=== PATIENT | male | born 1945 | race Caucasian/White ===

== ENCOUNTER 2017-12-28 12:34 | Emergency (ER) | payer MEDICARE, SELFPAY ==
[2017-12-28 12:38] VITALS: BP 167/69; PULSE 48; RESP 14; TEMP 36.7; O2SAT 99; BMI 27.4
--- NOTE | 2017-12-28 12:49 | ED.SOB ---
HPI - SOB/Dyspnea <Mary Alvarez PA-C - Last Filed: 12/28/17 21:45> General Chief Complaint: Shortness of Breath/Dyspnea Stated Complaint: STATES CONGESTED,SOB,ACHE ALL OVER Time Seen by Provider: 12/28/17 12:49 Source: patient Mode of arrival: ambulatory Limitations: no limitations History of Present Illness This 72-year-old gentleman comes to the ED today due to feeling short of breath and more fatigue for the last 3-4 days. He notices that he is wheezing with exercise and has reduced exercise tolerance, especially noted walking up hill. He states that his chest feels congested, and he has also had some body aches. He denies any chest pain. He denies any abdominal pain or nausea though has had some decreased appetite. He denies any pain or swelling in the extremities. He denies any difficulty lying supine due to breathing issues. He does have some intermittent dry cough. He has ongoing postnasal drip and he has had some headache. He states that he has chronic left ocular area pain which has been worked up and no specific source found. He has had fever. He states that his feeling of dyspnea with exertion actually gets better when he is walking a little bit more. He has a history of atrial flutter/fibrillation and had cardiac ablation for this. He has not noted any palpitations. He denies any vision change or jaw claudication with the headache. He states that he had the same symptoms last year and had a thorough cardiac workup including stress test and echocardiogram. 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 He mentioned to nursing that he thinks symptoms may have been going on for longer, maybe a month, but definitely worse in the last few days. Related Data Home Medications Medication Instructions Recorded Confirmed rosuvastatin 20 mg PO HS #0 08/24/17 12/28/17 tamsulosin [Flomax] 0.4 mg PO QDAY #0 08/24/17 12/28/17 atenolol 50 mg PO DAILY 12/28/17 12/28/17 omeprazole 20 mg PO DAILY 12/28/17 12/28/17 venlafaxine 37.5 mg PO DAILY 12/28/17 12/28/17 Allergies Allergy/AdvReac Type Severity Reaction Status Date / Time iodine [IODINE] Allergy Unknown Verified 12/28/17 12:41 Quinolones [QUINOLONES] Allergy Unknown Verified 12/28/17 12:41 prednisone AdvReac Severe Anxiety Verified 12/28/17 12:41 Review of Systems <JANAE Driscoll Last Filed: 12/28/17 21:45> Review of Systems All systems reviewed & are unremarkable except as noted in HPI and below Exam <JANAE Driscoll Last Filed: 12/28/17 21:45> Narrative Exam Narrative: GENERAL APPEARANCE: Patient sitting comfortably, in no distress. HEENT: PERRL, EOMI, normal oropharynx aside from some PND, normal TMs. No sinus tenderness NECK/THYROID: Neck supple, no JVD, no lymphadenopathy. LUNGS: Clear to auscultation bilaterally aside from some very faint sibilant end expiratory wheeze in the upper lobes. No cough on exam HEART: Regular rate and rhythm without murmur, slow, normal S1, S2, no S3 or S4. ABDOMEN: Soft, NT, ND, + BS x 4 quadrants EXTREMITIES: No cyanosis or edema. No calf tenderness NEUROLOGIC: Alert and oriented, normal speech, and coordination. Initial Vital Signs Initial Vital Signs: Vital Signs Temperature 98.0 F 12/28/17 12:38 Pulse Rate 48 L 12/28/17 12:38 Respiratory Rate 14 12/28/17 12:38 Blood Pressure 167/69 H 12/28/17 12:38 Pulse Oximetry 99 12/28/17 12:38 <Willis Aguilar MD - Last Filed: 01/08/18 08:20> Initial Vital Signs Initial Vital Signs: Vital Signs Temperature 98.0 F 12/28/17 12:38 Pulse Rate 48 L 12/28/17 12:38 Respiratory Rate 14 12/28/17 12:38 Blood Pressure 167/69 H 12/28/17 12:38 Pulse Oximetry 99 12/28/17 12:38 Scores <JANAE Driscoll Last Filed: 12/28/17 21:45> HEART Score Heart Score history: Slightly Suspicious Heart Score EKG: Normal Heart Score Age: > or = 65 years old Heart Score risk factors: 1-2 risk factors Heart Score troponin: < or = to normal limit Heart Score Total: 3 Course <JANAE Driscoll Filed: 12/28/17 21:45> Additional Information: I have reviewed findings with Dr. Aguilar who has also reviewed EKG and heart score. He has been symptomatic while here and no acute findings on workup. We talked about possible hospital admission but he does not feel like this is needed. Patient actually reduced his atenolol today already. Patient would like to try lower dose of atenolol for a couple of days since his heart rate is on the low side, as well as medication to help with postnasal drip and chest congestion and see if he improves. He agreed to return if any acutely worsening symptoms, otherwise advised to follow up with PCP within 2 days. Orders Ordered: Discontinued Medications Albuterol (Proventil) 1.25 mg INH NOW ONE Stop: 12/28/17 13:09 Last Admin: 12/28/17 14:20 Dose: Albuterol (Ventolin) 2.5 mg INH NOW ONE Stop: 12/28/17 13:28 Last Admin: 12/28/17 13:28 Dose: 2.5 mg Al Hydrox/Mg Hydrox/Simethicone 20 ml/ Lidocaine HCl 15 ml 0 ml PO NOW ONE Stop: 12/28/17 13:44 Last Admin: 12/28/17 13:48 Dose: 45 ml Vital Signs - 8 hr 12/28/17 14:00 12/28/17 14:30 12/28/17 16:04 Pulse Rate 51 L 51 L 51 L Respiratory Rate 15 17 16 Blood Pressure [Right Arm] 132/62 H 136/62 H 130/66 H Pulse Oximetry 97 95 100 <Willis Aguilar MD - Last Filed: 01/08/18 08:20> Orders Ordered: Discontinued Medications Albuterol (Proventil) 1.25 mg INH NOW ONE Stop: 12/28/17 13:09 Last Admin: 12/28/17 14:20 Dose: Albuterol (Ventolin) 2.5 mg INH NOW ONE Stop: 12/28/17 13:28 Last Admin: 12/28/17 13:28 Dose: 2.5 mg Al Hydrox/Mg Hydrox/Simethicone 20 ml/ Lidocaine HCl 15 ml 0 ml PO NOW ONE Stop: 12/28/17 13:44 Last Admin: 12/28/17 13:48 Dose: 45 ml Vital Signs - 8 hr 12/28/17 14:00 12/28/17 14:30 12/28/17 16:04 Pulse Rate 51 L 51 L 51 L Respiratory Rate 15 17 16 Blood Pressure [Right Arm] 132/62 H 136/62 H 130/66 H Pulse Oximetry 97 95 100 MDM - SOB/Dyspnea <Mary Alvarez PA-C - Last Filed: 12/28/17 21:45> Lab Data Result diagrams: 12/28/17 13:28 12/28/17 13:28 Lab Results 12/28/17 12/28/17 12/28/17 Range/Units 13:28 13:28 13:28 WBC 4.7 (4.5-11.0) X10^3/uL RBC 5.22 (4.5-5.9) X10^6/uL Hgb 15.8 (13.5-17.5) g/dL Hct 47.1 (41-53) % MCV 90.3 (80-100) fL MCH 30.2 (26-34) PG MCHC 33.4 (30-36) % RDW 14.5 (11.6-14.8) % Plt Count 232 (150-400) X10^3/uL Neut % (Auto) 65.1 (50-75) % Lymph % (Auto) 22.3 L (25-40) % [place] % (Auto) 9.5 (3-14) % Eos % (Auto) 2.3 (2-4) % Baso % (Auto) 0.8 (0-2) % Neut # (Auto) 3000 (2479-4134) /uL ESR (0-15) MM/HR D-Dimer < 200 (<230) ng/mL Sodium 141 (137-145) mmol/L Potassium 4.6 (3.4-5.1) mmol/L Chloride 102 (98-107) mmol/L Carbon Dioxide 28 (22-32) mmol/L BUN 14 (9-20) mg/dL Creatinine 0.80 (0.66-1.25) mg/dL Estimated GFR > 60.0 (>60) mL/min BUN/Creatinine Ratio 17.5 (6-22) Glucose 98 (80-110) mg/dL Lactate (0.7-2.1) mmol/L Calcium 9.8 (8.4-10.2) mg/dL Total Bilirubin 0.8 (0.2-1.3) mg/dL AST 43 (17-59) IU/L ALT 56 (21-72) IU/L Alkaline Phosphatase 76 (38-126) U/L Total Creatine Kinase 80 (55-170) U/L Troponin I < 0.012 (0.01-0.034) ng/mL C-Reactive Protein (<1.0) mg/dL B-Natriuretic Peptide < 100.0 (<100) Total Protein 7.6 (6.3-8.2) g/dL Albumin 4.6 (3.5-5.0) g/dL Globulin 3.0 (1.7-4.1) g/dL Albumin/Globulin Ratio 1.5 (1.0-2.8) 12/28/17 12/28/17 12/28/17 Range/Units 13:28 13:42 13:42 WBC (4.5-11.0) X10^3/uL RBC (4.5-5.9) X10^6/uL Hgb (13.5-17.5) g/dL Hct (41-53) % MCV (80-100) fL MCH (26-34) PG MCHC (30-36) % RDW (11.6-14.8) % Plt Count (150-400) X10^3/uL Neut % (Auto) (50-75) % Lymph % (Auto) (25-40) % [place] % (Auto) (3-14) % Eos % (Auto) (2-4) % Baso % (Auto) (0-2) % Neut # (Auto) (3459-3330) /uL ESR 2 (0-15) MM/HR D-Dimer (<230) ng/mL Sodium (137-145) mmol/L Potassium (3.4-5.1) mmol/L Chloride (98-107) mmol/L Carbon Dioxide (22-32) mmol/L BUN (9-20) mg/dL Creatinine (0.66-1.25) mg/dL Estimated GFR (>60) mL/min BUN/Creatinine Ratio (6-22) Glucose (80-110) mg/dL Lactate 0.8 (0.7-2.1) mmol/L Calcium (8.4-10.2) mg/dL Total Bilirubin (0.2-1.3) mg/dL AST (17-59) IU/L ALT (21-72) IU/L Alkaline Phosphatase (38-126) U/L Total Creatine Kinase (55-170) U/L Troponin I (0.01-0.034) ng/mL C-Reactive Protein < 0.5 (<1.0) mg/dL B-Natriuretic Peptide (<100) Total Protein (6.3-8.2) g/dL Albumin (3.5-5.0) g/dL Globulin (1.7-4.1) g/dL Albumin/Globulin Ratio (1.0-2.8) Imaging Data Chest x-ray: Radiologist's impression: View Report History [address] [address] XRay Report Signed Patient: Juwan Cervantes MR#: [id number] : 1945 Acct:[id number] Age/Sex: 72 / M Date of Service: 12/28/17 Loc: ED Accession Number: [id number] Procedure: XR chest 2V Ordering Provider: Mary Alvarez P.A-C PROCEDURE: XR CHEST 2V INDICATIONS: dyspnea TECHNIQUE: 2 views of the chest were acquired. COMPARISON: None. FINDINGS: Surgical changes and devices: None. Lungs and pleura: No pleural effusions or pneumothorax. Lungs are clear. Mediastinum: Mediastinal contours are normal. Heart size is normal. Bones and chest wall: No suspicious bony abnormalities. Soft tissues appear unremarkable. IMPRESSION: Normal for age, source of current symptoms is not seen. Dictated by: Noel Rivera M.D. on 12/28/2017 at 13:16 Approved by: Noel Rivera M.D. on 12/28/2017 at 13:16 ECG Data Attestation: I personally reviewed and interpreted this ECG as follows: (Sinus bradycardia with rate 44, normal axis) <Willis Aguilar MD - Last Filed: 01/08/18 08:20> Lab Data Lab Results 12/28/17 12/28/17 12/28/17 Range/Units 13:28 13:28 13:28 WBC 4.7 (4.5-11.0) X10^3/uL RBC 5.22 (4.5-5.9) X10^6/uL Hgb 15.8 (13.5-17.5) g/dL Hct 47.1 (41-53) % MCV 90.3 (80-100) fL MCH 30.2 (26-34) PG MCHC 33.4 (30-36) % RDW 14.5 (11.6-14.8) % Plt Count 232 (150-400) X10^3/uL Neut % (Auto) 65.1 (50-75) % Lymph % (Auto) 22.3 L (25-40) % [place] % (Auto) 9.5 (3-14) % Eos % (Auto) 2.3 (2-4) % Baso % (Auto) 0.8 (0-2) % Neut # (Auto) 3000 (0275-7468) /uL ESR (0-15) MM/HR D-Dimer < 200 (<230) ng/mL Sodium 141 (137-145) mmol/L Potassium 4.6 (3.4-5.1) mmol/L Chloride 102 (98-107) mmol/L Carbon Dioxide 28 (22-32) mmol/L BUN 14 (9-20) mg/dL Creatinine 0.80 (0.66-1.25) mg/dL Estimated GFR > 60.0 (>60) mL/min BUN/Creatinine Ratio 17.5 (6-22) Glucose 98 (80-110) mg/dL Lactate (0.7-2.1) mmol/L Calcium 9.8 (8.4-10.2) mg/dL Total Bilirubin 0.8 (0.2-1.3) mg/dL AST 43 (17-59) IU/L ALT 56 (21-72) IU/L Alkaline Phosphatase 76 (38-126) U/L Total Creatine Kinase 80 (55-170) U/L Troponin I < 0.012 (0.01-0.034) ng/mL C-Reactive Protein (<1.0) mg/dL B-Natriuretic Peptide < 100.0 (<100) Total Protein 7.6 (6.3-8.2) g/dL Albumin 4.6 (3.5-5.0) g/dL Globulin 3.0 (1.7-4.1) g/dL Albumin/Globulin Ratio 1.5 (1.0-2.8) 12/28/17 12/28/17 12/28/17 Range/Units 13:28 13:42 13:42 WBC (4.5-11.0) X10^3/uL RBC (4.5-5.9) X10^6/uL Hgb (13.5-17.5) g/dL Hct (41-53) % MCV (80-100) fL MCH (26-34) PG MCHC (30-36) % RDW (11.6-14.8) % Plt Count (150-400) X10^3/uL Neut % (Auto) (50-75) % Lymph % (Auto) (25-40) % [place] % (Auto) (3-14) % Eos % (Auto) (2-4) % Baso % (Auto) (0-2) % Neut # (Auto) (5555-9685) /uL ESR 2 (0-15) MM/HR D-Dimer (<230) ng/mL Sodium (137-145) mmol/L Potassium (3.4-5.1) mmol/L Chloride (98-107) mmol/L Carbon Dioxide (22-32) mmol/L BUN (9-20) mg/dL Creatinine (0.66-1.25) mg/dL Estimated GFR (>60) mL/min BUN/Creatinine Ratio (6-22) Glucose (80-110) mg/dL Lactate 0.8 (0.7-2.1) mmol/L Calcium (8.4-10.2) mg/dL Total Bilirubin (0.2-1.3) mg/dL AST (17-59) IU/L ALT (21-72) IU/L Alkaline Phosphatase (38-126) U/L Total Creatine Kinase (55-170) U/L Troponin I (0.01-0.034) ng/mL C-Reactive Protein < 0.5 (<1.0) mg/dL B-Natriuretic Peptide (<100) Total Protein (6.3-8.2) g/dL Albumin (3.5-5.0) g/dL Globulin (1.7-4.1) g/dL Albumin/Globulin Ratio (1.0-2.8) Discharge Plan Departure Patient Disposition: Home Clinical Impression: Exercise-induced shortness of breath Discharge Date/Time: 12/28/17 16:22 Interventions: ED Discharge Assessment Last Done: 12/28/17 16:21 Instructions: DI for Shortness of Breath Activity Restrictions/Additional Instructions: You should return immediately if you have any acutely worsening symptoms. Otherwise, it is reasonable to monitor at home with your change in atenolol. There were no specific problems found on your testing today, and your oxygenation level appears normal. Your symptoms could be associated with allergies or virus since you have had some body aches and postnasal drip, or might be related to low heart rate. Please keep track of your heart rate a few times daily for the next day or so with taking 1/2 atenolol twice daily. You can try [id number] Zyrtec (cetirizine) 10 mg once daily for postnasal drip, and also guaifenesin [id number] to help with chest congestion. You may add pseudoephedrine (I would suggest the short-acting dose of 60 mg) and a steroid nasal spray [id number] such as fluticasone to see if these are helpful as well. You should follow up with your PCP within the next 48 hr. Prescriptions: No Action tamsulosin [Flomax] 0.4 MG capsule,extended release 24hr 0.4 mg PO QDAY Qty: 0 RF: 0 rosuvastatin 20 MG tablet 20 mg PO HS Qty: 0 RF: 0 atenolol 50 mg tablet 50 mg PO DAILY RF: 0 omeprazole 20 mg Tablet,Delayed Release (Dr/Ec) 20 mg PO DAILY RF: 0 venlafaxine 37.5 mg capsule,extended release 24hr 37.5 mg PO DAILY RF: 0 Referrals: Annette Carmona MD [Non-Staff] - <Willis Aguilar MD - Last Filed: 01/08/18 08:20> Sign Out Provider Sign Out Attestation: The PA/HR SYSTEMS ANALYST functioned independently for the care of this pt, I was available, but not asked to participate in care. I am unable to determine appropriateness of management without personally examining the pt.
[2017-12-28 13:00] VITALS: BP 153/72; PULSE 50; RESP 23; O2SAT 99
--- NOTE | 2017-12-28 13:06 | DI.RAD.S_ITS ---
PROCEDURE: XR CHEST 2V INDICATIONS: dyspnea TECHNIQUE: 2 views of the chest were acquired. COMPARISON: None. FINDINGS: Surgical changes and devices: None. Lungs and pleura: No pleural effusions or pneumothorax. Lungs are clear. Mediastinum: Mediastinal contours are normal. Heart size is normal. Bones and chest wall: No suspicious bony abnormalities. Soft tissues appear unremarkable. IMPRESSION: Normal for age, source of current symptoms is not seen. Dictated by: Noel Rivera M.D. on 12/28/2017 at 13:16 Approved by: Noel Rivera M.D. on 12/28/2017 at 13:16
--- NOTE | 2017-12-28 13:10 | ED_ITS ---
HPI - SOB/Dyspnea <Mary Alvarez PA-C - Last Filed: 12/28/17 21:45> General Chief Complaint: Shortness of Breath/Dyspnea Stated Complaint: STATES CONGESTED,SOB,ACHE ALL OVER Time Seen by Provider: 12/28/17 12:49 Source: patient Mode of arrival: ambulatory Limitations: no limitations History of Present Illness This 72-year-old gentleman comes to the ED today due to feeling short of breath and more fatigue for the last 3-4 days. He notices that he is wheezing with exercise and has reduced exercise tolerance, especially noted walking up hill. He states that his chest feels congested, and he has also had some body aches. He denies any chest pain. He denies any abdominal pain or nausea though has had some decreased appetite. He denies any pain or swelling in the extremities. He denies any difficulty lying supine due to breathing issues. He does have some intermittent dry cough. He has ongoing postnasal drip and he has had some headache. He states that he has chronic left ocular area pain which has been worked up and no specific source found. He has had fever. He states that his feeling of dyspnea with exertion actually gets better when he is walking a little bit more. He has a history of atrial flutter/fibrillation and had cardiac ablation for this. He has not noted any palpitations. He denies any vision change or jaw claudication with the headache. He states that he had the same symptoms last year and had a thorough cardiac workup including stress test and echocardiogram. States his support group manager gave him reflux medication as it was felt to be due to this, and symptoms did gradually resolve. He mentioned to nursing that he thinks symptoms may have been going on for longer, maybe a month, but definitely worse in the last few days. Related Data Home Medications Medication Instructions Recorded Confirmed rosuvastatin 20 mg PO HS #0 08/24/17 12/28/17 tamsulosin [Flomax] 0.4 mg PO QDAY #0 08/24/17 12/28/17 atenolol 50 mg PO DAILY 12/28/17 12/28/17 omeprazole 20 mg PO DAILY 12/28/17 12/28/17 venlafaxine 37.5 mg PO DAILY 12/28/17 12/28/17 Allergies Allergy/AdvReac Type Severity Reaction Status Date / Time iodine [IODINE] Allergy Unknown Verified 12/28/17 12:41 Quinolones [QUINOLONES] Allergy Unknown Verified 12/28/17 12:41 prednisone AdvReac Severe Anxiety Verified 12/28/17 12:41 Review of Systems <JANAE Driscoll Last Filed: 12/28/17 21:45> Review of Systems All systems reviewed & are unremarkable except as noted in HPI and below Exam <JANAE Driscoll Last Filed: 12/28/17 21:45> Narrative Exam Narrative: GENERAL APPEARANCE: Patient sitting comfortably, in no distress. HEENT: PERRL, EOMI, normal oropharynx aside from some PND, normal TMs. No sinus tenderness NECK/THYROID: Neck supple, no JVD, no lymphadenopathy. LUNGS: Clear to auscultation bilaterally aside from some very faint sibilant end expiratory wheeze in the upper lobes. No cough on exam HEART: Regular rate and rhythm without murmur, slow, normal S1, S2, no S3 or S4. ABDOMEN: Soft, NT, ND, + BS x 4 quadrants EXTREMITIES: No cyanosis or edema. No calf tenderness NEUROLOGIC: Alert and oriented, normal speech, and coordination. Initial Vital Signs Initial Vital Signs: Vital Signs Temperature 98.0 F 12/28/17 12:38 Pulse Rate 48 L 12/28/17 12:38 Respiratory Rate 14 12/28/17 12:38 Blood Pressure 167/69 H 12/28/17 12:38 Pulse Oximetry 99 12/28/17 12:38 <Willis Aguilar MD - Last Filed: 01/08/18 08:20> Initial Vital Signs Initial Vital Signs: Vital Signs Temperature 98.0 F 12/28/17 12:38 Pulse Rate 48 L 12/28/17 12:38 Respiratory Rate 14 12/28/17 12:38 Blood Pressure 167/69 H 12/28/17 12:38 Pulse Oximetry 99 12/28/17 12:38 Scores <JANAE Driscoll Last Filed: 12/28/17 21:45> HEART Score Heart Score history: Slightly Suspicious Heart Score EKG: Normal Heart Score Age: > or = 65 years old Heart Score risk factors: 1-2 risk factors Heart Score troponin: < or = to normal limit Heart Score Total: 3 Course <JANAE Driscoll Filed: 12/28/17 21:45> Additional Information: I have reviewed findings with Dr. Aguilar who has also reviewed EKG and heart score. He has been symptomatic while here and no acute findings on workup. We talked about possible hospital admission but he does not feel like this is needed. Patient actually reduced his atenolol today already. Patient would like to try lower dose of atenolol for a couple of days since his heart rate is on the low side, as well as medication to help with postnasal drip and chest congestion and see if he improves. He agreed to return if any acutely worsening symptoms, otherwise advised to follow up with PCP within 2 days. Orders Ordered: Discontinued Medications Albuterol (Proventil) 1.25 mg INH NOW ONE Stop: 12/28/17 13:09 Last Admin: 12/28/17 14:20 Dose: Albuterol (Ventolin) 2.5 mg INH NOW ONE Stop: 12/28/17 13:28 Last Admin: 12/28/17 13:28 Dose: 2.5 mg Al Hydrox/Mg Hydrox/Simethicone 20 ml/ Lidocaine HCl 15 ml 0 ml PO NOW ONE Stop: 12/28/17 13:44 Last Admin: 12/28/17 13:48 Dose: 45 ml Vital Signs - 8 hr 12/28/17 14:00 12/28/17 14:30 12/28/17 16:04 Pulse Rate 51 L 51 L 51 L Respiratory Rate 15 17 16 Blood Pressure [Right Arm] 132/62 H 136/62 H 130/66 H Pulse Oximetry 97 95 100 <Willis Aguilar MD - Last Filed: 01/08/18 08:20> Orders Ordered: Discontinued Medications Albuterol (Proventil) 1.25 mg INH NOW ONE Stop: 12/28/17 13:09 Last Admin: 12/28/17 14:20 Dose: Albuterol (Ventolin) 2.5 mg INH NOW ONE Stop: 12/28/17 13:28 Last Admin: 12/28/17 13:28 Dose: 2.5 mg Al Hydrox/Mg Hydrox/Simethicone 20 ml/ Lidocaine HCl 15 ml 0 ml PO NOW ONE Stop: 12/28/17 13:44 Last Admin: 12/28/17 13:48 Dose: 45 ml Vital Signs - 8 hr 12/28/17 14:00 12/28/17 14:30 12/28/17 16:04 Pulse Rate 51 L 51 L 51 L Respiratory Rate 15 17 16 Blood Pressure [Right Arm] 132/62 H 136/62 H 130/66 H Pulse Oximetry 97 95 100 MDM - SOB/Dyspnea <Mary Alvarez PA-C - Last Filed: 12/28/17 21:45> Lab Data Result diagrams: 12/28/17 13:28 12/28/17 13:28 Lab Results 12/28/17 12/28/17 12/28/17 Range/Units 13:28 13:28 13:28 WBC 4.7 (4.5-11.0) X10^3/uL RBC 5.22 (4.5-5.9) X10^6/uL Hgb 15.8 (13.5-17.5) g/dL Hct 47.1 (41-53) % MCV 90.3 (80-100) fL MCH 30.2 (26-34) PG MCHC 33.4 (30-36) % RDW 14.5 (11.6-14.8) % Plt Count 232 (150-400) X10^3/uL Neut % (Auto) 65.1 (50-75) % Lymph % (Auto) 22.3 L (25-40) % [place] % (Auto) 9.5 (3-14) % Eos % (Auto) 2.3 (2-4) % Baso % (Auto) 0.8 (0-2) % Neut # (Auto) 3000 (0141-0710) /uL ESR (0-15) MM/HR D-Dimer < 200 (<230) ng/mL Sodium 141 (137-145) mmol/L Potassium 4.6 (3.4-5.1) mmol/L Chloride 102 (98-107) mmol/L Carbon Dioxide 28 (22-32) mmol/L BUN 14 (9-20) mg/dL Creatinine 0.80 (0.66-1.25) mg/dL Estimated GFR > 60.0 (>60) mL/min BUN/Creatinine Ratio 17.5 (6-22) Glucose 98 (80-110) mg/dL Lactate (0.7-2.1) mmol/L Calcium 9.8 (8.4-10.2) mg/dL Total Bilirubin 0.8 (0.2-1.3) mg/dL AST 43 (17-59) IU/L ALT 56 (21-72) IU/L Alkaline Phosphatase 76 (38-126) U/L Total Creatine Kinase 80 (55-170) U/L Troponin I < 0.012 (0.01-0.034) ng/mL C-Reactive Protein (<1.0) mg/dL B-Natriuretic Peptide < 100.0 (<100) Total Protein 7.6 (6.3-8.2) g/dL Albumin 4.6 (3.5-5.0) g/dL Globulin 3.0 (1.7-4.1) g/dL Albumin/Globulin Ratio 1.5 (1.0-2.8) 12/28/17 12/28/17 12/28/17 Range/Units 13:28 13:42 13:42 WBC (4.5-11.0) X10^3/uL RBC (4.5-5.9) X10^6/uL Hgb (13.5-17.5) g/dL Hct (41-53) % MCV (80-100) fL MCH (26-34) PG MCHC (30-36) % RDW (11.6-14.8) % Plt Count (150-400) X10^3/uL Neut % (Auto) (50-75) % Lymph % (Auto) (25-40) % [place] % (Auto) (3-14) % Eos % (Auto) (2-4) % Baso % (Auto) (0-2) % Neut # (Auto) (9921-0032) /uL ESR 2 (0-15) MM/HR D-Dimer (<230) ng/mL Sodium (137-145) mmol/L Potassium (3.4-5.1) mmol/L Chloride (98-107) mmol/L Carbon Dioxide (22-32) mmol/L BUN (9-20) mg/dL Creatinine (0.66-1.25) mg/dL Estimated GFR (>60) mL/min BUN/Creatinine Ratio (6-22) Glucose (80-110) mg/dL Lactate 0.8 (0.7-2.1) mmol/L Calcium (8.4-10.2) mg/dL Total Bilirubin (0.2-1.3) mg/dL AST (17-59) IU/L ALT (21-72) IU/L Alkaline Phosphatase (38-126) U/L Total Creatine Kinase (55-170) U/L Troponin I (0.01-0.034) ng/mL C-Reactive Protein < 0.5 (<1.0) mg/dL B-Natriuretic Peptide (<100) Total Protein (6.3-8.2) g/dL Albumin (3.5-5.0) g/dL Globulin (1.7-4.1) g/dL Albumin/Globulin Ratio (1.0-2.8) Imaging Data Chest x-ray: Radiologist's impression: View Report History [address] [address] XRay Report Signed Patient: Juwan Cervantes MR#: [id number] : 1945 Acct:[id number] Age/Sex: 72 / M Date of Service: 12/28/17 Loc: ED Accession Number: [id number] Procedure: XR chest 2V Ordering Provider: Mary Alvarez P.A-C PROCEDURE: XR CHEST 2V INDICATIONS: dyspnea TECHNIQUE: 2 views of the chest were acquired. COMPARISON: None. FINDINGS: Surgical changes and devices: None. Lungs and pleura: No pleural effusions or pneumothorax. Lungs are clear. Mediastinum: Mediastinal contours are normal. Heart size is normal. Bones and chest wall: No suspicious bony abnormalities. Soft tissues appear unremarkable. IMPRESSION: Normal for age, source of current symptoms is not seen. Dictated by: Noel Rivera M.D. on 12/28/2017 at 13:16 Approved by: Noel Rivera M.D. on 12/28/2017 at 13:16 ECG Data Attestation: I personally reviewed and interpreted this ECG as follows: (Sinus bradycardia with rate 44, normal axis) <Willis Aguilar MD - Last Filed: 01/08/18 08:20> Lab Data Lab Results 12/28/17 12/28/17 12/28/17 Range/Units 13:28 13:28 13:28 WBC 4.7 (4.5-11.0) X10^3/uL RBC 5.22 (4.5-5.9) X10^6/uL Hgb 15.8 (13.5-17.5) g/dL Hct 47.1 (41-53) % MCV 90.3 (80-100) fL MCH 30.2 (26-34) PG MCHC 33.4 (30-36) % RDW 14.5 (11.6-14.8) % Plt Count 232 (150-400) X10^3/uL Neut % (Auto) 65.1 (50-75) % Lymph % (Auto) 22.3 L (25-40) % [place] % (Auto) 9.5 (3-14) % Eos % (Auto) 2.3 (2-4) % Baso % (Auto) 0.8 (0-2) % Neut # (Auto) 3000 (8174-7944) /uL ESR (0-15) MM/HR D-Dimer < 200 (<230) ng/mL Sodium 141 (137-145) mmol/L Potassium 4.6 (3.4-5.1) mmol/L Chloride 102 (98-107) mmol/L Carbon Dioxide 28 (22-32) mmol/L BUN 14 (9-20) mg/dL Creatinine 0.80 (0.66-1.25) mg/dL Estimated GFR > 60.0 (>60) mL/min BUN/Creatinine Ratio 17.5 (6-22) Glucose 98 (80-110) mg/dL Lactate (0.7-2.1) mmol/L Calcium 9.8 (8.4-10.2) mg/dL Total Bilirubin 0.8 (0.2-1.3) mg/dL AST 43 (17-59) IU/L ALT 56 (21-72) IU/L Alkaline Phosphatase 76 (38-126) U/L Total Creatine Kinase 80 (55-170) U/L Troponin I < 0.012 (0.01-0.034) ng/mL C-Reactive Protein (<1.0) mg/dL B-Natriuretic Peptide < 100.0 (<100) Total Protein 7.6 (6.3-8.2) g/dL Albumin 4.6 (3.5-5.0) g/dL Globulin 3.0 (1.7-4.1) g/dL Albumin/Globulin Ratio 1.5 (1.0-2.8) 12/28/17 12/28/17 12/28/17 Range/Units 13:28 13:42 13:42 WBC (4.5-11.0) X10^3/uL RBC (4.5-5.9) X10^6/uL Hgb (13.5-17.5) g/dL Hct (41-53) % MCV (80-100) fL MCH (26-34) PG MCHC (30-36) % RDW (11.6-14.8) % Plt Count (150-400) X10^3/uL Neut % (Auto) (50-75) % Lymph % (Auto) (25-40) % [place] % (Auto) (3-14) % Eos % (Auto) (2-4) % Baso % (Auto) (0-2) % Neut # (Auto) (4664-7222) /uL ESR 2 (0-15) MM/HR D-Dimer (<230) ng/mL Sodium (137-145) mmol/L Potassium (3.4-5.1) mmol/L Chloride (98-107) mmol/L Carbon Dioxide (22-32) mmol/L BUN (9-20) mg/dL Creatinine (0.66-1.25) mg/dL Estimated GFR (>60) mL/min BUN/Creatinine Ratio (6-22) Glucose (80-110) mg/dL Lactate 0.8 (0.7-2.1) mmol/L Calcium (8.4-10.2) mg/dL Total Bilirubin (0.2-1.3) mg/dL AST (17-59) IU/L ALT (21-72) IU/L Alkaline Phosphatase (38-126) U/L Total Creatine Kinase (55-170) U/L Troponin I (0.01-0.034) ng/mL C-Reactive Protein < 0.5 (<1.0) mg/dL B-Natriuretic Peptide (<100) Total Protein (6.3-8.2) g/dL Albumin (3.5-5.0) g/dL Globulin (1.7-4.1) g/dL Albumin/Globulin Ratio (1.0-2.8) Discharge Plan Departure Patient Disposition: Home Clinical Impression: Exercise-induced shortness of breath Discharge Date/Time: 12/28/17 16:22 Interventions: ED Discharge Assessment Last Done: 12/28/17 16:21 Instructions: DI for Shortness of Breath Activity Restrictions/Additional Instructions: You should return immediately if you have any acutely worsening symptoms. Otherwise, it is reasonable to monitor at home with your change in atenolol. There were no specific problems found on your testing today, and your oxygenation level appears normal. Your symptoms could be associated with allergies or virus since you have had some body aches and postnasal drip, or might be related to low heart rate. Please keep track of your heart rate a few times daily for the next day or so with taking 1/2 atenolol twice daily. You can try [id number] Zyrtec (cetirizine) 10 mg once daily for postnasal drip , and also guaifenesin [id number] to help with chest congestion. You may add pseudoephedrine (I would suggest the short-acting dose of 60 mg) and a steroid nasal spray [id number] such as fluticasone to see if these are helpful as well. You should follow up with your PCP within the next 48 hr. Prescriptions: No Action tamsulosin [Flomax] 0.4 MG capsule,extended release 24hr 0.4 mg PO QDAY Qty: 0 RF: 0 rosuvastatin 20 MG tablet 20 mg PO HS Qty: 0 RF: 0 atenolol 50 mg tablet 50 mg PO DAILY RF: 0 omeprazole 20 mg Tablet,Delayed Release (Dr/Ec) 20 mg PO DAILY RF: 0 venlafaxine 37.5 mg capsule,extended release 24hr 37.5 mg PO DAILY RF: 0 Referrals: Annette Carmona MD [Non-Staff] - <Willis Aguilar MD - Last Filed: 01/08/18 08:20> Sign Out Provider Sign Out Attestation: The PA/CARROT TIER functioned independently for the care of this pt, I was available, but not asked to participate in care. I am unable to determine appropriateness of management without personally examining the pt.
[2017-12-28] MEDS: ALBUTEROL 2.5 MG/3 ML NEB (ADULT) INH (13:28)
[2017-12-28 13:44] LABS: Add Manual Diff / Slide Review NO; Basophils Percent Auto 0.8 % (0-2); Eosinophils Percent Auto 2.3 % (2-4); Hematocrit 47.1 % (41-53); Hemoglobin 15.8 g/dL (13.5-17.5); Lymphocytes Percent Auto 22.3 % (25-40); Mean Corpuscular HGB Conc 33.4 % (30-36); Mean Corpuscular Hemoglobin 30.2 PG (26-34); Mean Corpuscular Volume 90.3 fL (80-100); Monocytes Percent Auto 9.5 % (3-14); Neutrophils Absolute Auto 3000 /uL (3000-5900); Neutrophils Percent Auto 65.1 % (50-75); Platelet Count 232 X10^3/uL (150-400); Red Blood Cell Count 5.22 X10^6/uL (4.5-5.9); Red Cell Distribution Width 14.5 % (11.6-14.8); White Blood Cell Count 4.7 X10^3/uL (4.5-11.0)
[2017-12-28] MEDS: MAG HYDROX/ALUMINUM/SIMETH SUS 20 ML, LIDOCAINE VISCOUS 2% 15 ML PO (13:48)
[2017-12-28 13:54] LABS: Lactate (Lactic Acid) 0.8 mmol/L (0.7-2.1)
[2017-12-28 13:55] LABS: Alanine Aminotransferase 56 IU/L (21-72); Albumin 4.6 g/dL (3.5-5.0); Albumin Globulin Ratio 1.5 (1.0-2.8); Alkaline Phosphatase 76 U/L (38-126); Aspartate Aminotransferase 43 IU/L (17-59); BUN Creatinine Ratio 17.5 (6-22); Bilirubin Total 0.8 mg/dL (0.2-1.3); Blood Urea Nitrogen 14 mg/dL (9-20); Calcium 9.8 mg/dL (8.4-10.2); Carbon Dioxide 28 mmol/L (22-32); Chloride 102 mmol/L (98-107); Creatine Kinase 80 U/L (55-170); Estimated Glomerular Filt Rate > 60.0 mL/min (>60); Glucose 98 mg/dL (80-110); HEMOLYSIS < 15 (0-50); Potassium 4.6 mmol/L (3.4-5.1); Sodium 141 mmol/L (137-145); Total Protein 7.6 g/dL (6.3-8.2)
[2017-12-28 13:59] LABS: D Dimer < 200 ng/mL (<230)
[2017-12-28 14:00] VITALS: BP 132/62; PULSE 51; RESP 15; O2SAT 97
[2017-12-28 14:05] LABS: C-Reactive Protein Quant < 0.5 mg/dL (<1.0)
[2017-12-28 14:06] LABS: Troponin I < 0.012 ng/mL (0.01-0.034)
[2017-12-28 14:09] LABS: Erythrocyte Sedimentation Rate 2 MM/HR (0-15)
[2017-12-28 14:30] VITALS: BP 136/62; PULSE 51; RESP 17; O2SAT 95
[2017-12-28 14:35] LABS: B Type Natriuretic Peptide < 100.0 (<100)
[2017-12-28 16:04] VITALS: BP 130/66; PULSE 51; RESP 16; O2SAT 100
== END 2017-12-28 16:22 | disposition home or self-care (01) ==
PROVIDERS: Emergency Provider Internal Medicine
DX: R06.02 Shortness of breath (principal)
CPT/HCPCS: 36591; 71046; 80053; 82550; 82553; 83605; 83880; 84484; 85025; 85379; 85651; 86140; 93005; 93010; 94640; 99283; 99285; J7613